=== PATIENT | female | born 1965 | race Caucasian/White ===

== ENCOUNTER 2016-10-29 13:12 | Emergency (ER) | payer BC ==
--- NOTE | 2016-10-29 13:25 | EDPHY ---
H & P Time Seen by Provider: 10/29/16 13:24 HPI/ROS: Chief complaint. Fall HPI. The patient is a 51-year-old female presents emergency department with laceration to face in injury to both knees after missing the last step all descending some stairs just prior to arrival. She fell forward. Hurt glasses cut her right eyebrow. She has an abrasion to her cheek. She is not sure whether she lost consciousness or not briefly. She has some right-sided neck pain but otherwise no back pain. Denies chest pain or abdominal pain. Abrasion to the dorsum of her right ankle and both knees. She has been ambulatory. No vision change. Slight headache ROS Constitutional. no fever/chills, no weakness Eyes. no problems with vision ENT. no sore throat, no nasal drainage Cardiovascular. no chest pain Respiratory. no shortness of breath, no cough Abdominal. no abdominal pain, no nausea/vomiting, no diarrhea . no problems urinating MS. right-sided neck pain Skin. Laceration right eyebrow. Abrasions to both knees and right ankle Lymph. no swollen glands Neuro. Headache Past Medical/Surgical History: Hep C, asthma, orthopedic surgeries, hysterectomy Social History: , nonsmoker, no alcohol Smoking Status: Never smoked Physical Exam: General Appearance: Alert pleasant well-developed female mild distress vital signs stable Eyes: Pupils equal and round no pallor or injection. No restriction of gaze. ENT, no hemotympanum or Archibald sign. No oral pharyngeal or dental trauma. Slight abrasion and mild swelling to the right cheek. Respiratory: There are no retractions, lungs are clear to auscultation. Cardiovascular: Regular rate and rhythm. Gastrointestinal: Abdomen is soft and nontender, no masses, bowel sounds normal. Neurological: Awake and alert, sensory and motor exams grossly normal. Skin: Laceration right eyebrow measuring 1.5 cm Musculoskeletal: No cervical spine tenderness. Mild tenderness to the muscles of the right-sided neck and trapezius Extremities abrasions both knees and dorsum right ankle Psychiatric: Patient is oriented X 3, there is no agitation. Constitutional: Initial Vital Signs Temperature (C) 36.4 C 10/29/16 13:15 Heart Rate 100 10/29/16 13:15 Respiratory Rate 16 10/29/16 13:15 Blood Pressure 148/95 H 10/29/16 13:15 O2 Sat (%) 95 10/29/16 13:15 O2 Delivery Mode Room Air Allergies/Adverse Reactions: codeine Allergy (Severe, Verified 10/29/16 14:27) Sulfa (Sulfonamide Antibiotics) Allergy (Unknown, Verified 10/29/16 14:26) amoxicillin Allergy (Verified 10/29/16 13:34) azithromycin Allergy (Verified 10/29/16 14:27) iodine [Iodine] Allergy (Verified 10/29/16 13:34) shellfish derived Allergy (Verified 10/29/16 14:27) Home Medications: Medication Instructions Recorded Alegra 09/30/09 Estratest 09/30/09 Hctz 09/30/09 Medical Decision Making Procedures: Tylenol by mouth Procedure: Laceration repair. Verbal consent was obtained from the patient. The 1.5 cm laceration on the right eyebrow was anesthetized in the usual fashion. The wound was irrigated, draped and explored to its base with a gloved finger. There were no deep structures involved. No tendon injury was identified. The wound was repaired with six 6-0 prolene sutures . The wound repair was simple. The procedure was performed by myself. ED Course/Re-evaluation: Abrasions were cleaned and dressed re-evaluation 2:30 p.m. patient is alert, conversational. Neurologically intact. No sign of concussion. Patient and I discussed treatment plan including criteria for return importance of follow-up further evaluation. She expresses understanding and agreement Differential Diagnosis: I considered closed head injury, facial fractures, concussion, fractures to extremities. I think the patient has contusion with laceration to face and abrasions without evidence for concussion or fracture - Data Points Medications Given: Discontinued Medications Acetaminophen (Tylenol) 650 mg PO EDNOW ONE Stop: 10/29/16 13:57 Last Admin: 10/29/16 14:10 Dose: 650 mg Tetracaine/Epinephrine/Lidocaine (Let Gel Topical) 1 ea TP EDNOW ONE Stop: 10/29/16 14:13 Last Admin: 10/29/16 14:20 Dose: 1 ea Departure - Departure Disposition: Home, Routine, Self-Care Clinical Impression: Facial laceration Qualifiers: Encounter type: initial encounter Qualified Code(s): S01.81XA - Laceration without foreign body of other part of head, initial encounter Condition: Good Instructions: Care For Your Stitches (ED) Additional Instructions: Ice to sore areas today. Tylenol for discomfort. You may shower and wash your hair with stitches in. Stitches out 5 days Referrals: Sidra John [Primary Care Provider] - As per Instructions
[2016-10-29] MEDS ORDERED: ACETAMINOPHEN 500 MG TAB PO ONE (13:35)
[2016-10-29] MEDS ORDERED: ACETAMINOPHEN 325 MG TAB PO ONE (13:56)
[2016-10-29] MEDS ORDERED: ACETAMINOPHEN 325 MG TAB ONE (13:58)
[2016-10-29] MEDS ORDERED: LET GEL TOPICAL 1 EA SYR TP ONE ×2 (14:11→14:12)
[2016-10-29 14:17] VITALS: RESP 16; TEMP 97.5; O2SAT 95
[2016-10-29 14:59] VITALS: BP 140/88; PULSE 80
== END 2016-10-29 14:57 | disposition home or self-care (01) ==
LOC: CED 13:12
PROC: 08QNXZZ Repair Right Upper Eyelid, External Approach (ICD-10-PCS; principal; 2016-10-29)
DX: S01.111A Laceration without foreign body of right eyelid and periocular area, initial encounter (principal); J45.909 Unspecified asthma, uncomplicated; W18.09XA Striking against other object with subsequent fall, initial encounter

== ENCOUNTER 2018-04-13 11:56 | Emergency (ER) | payer BC ==
--- NOTE | 2018-04-13 12:50 | EDPHY ---
H & P Stated Complaint: Pt. states hematuria this am intermittently x1 week, rt flank pain Time Seen by Provider: 04/13/18 12:05 HPI/ROS: Chief Complaint: Flank pain, hematuria HPI: 52-year-old woman with a history of a bladder sling operation approximately 10 months ago is presenting with hematuria. Patient states she is having bouts of episodes of hematuria since surgery. She has been on multiple courses of antibiotics but urine cultures have come back negative. She has not followed up with the urologist. Her OBGYN is retiring. No fevers or chills. She has not had blood in her urine for quite some time but over the last several days has been having some intermittently. She is also having some pain in her right back. She was seen at urgent care this morning and had a negative urine dip but was sent here for further evaluation. No abdominal pain. No vaginal discharge. She does have a history of a hysterectomy in the past. No nausea or vomiting. No fevers or chills. No urinary urgency or frequency. ROS: 10 systems were reviewed and were negative except those elements noted in the HPI. PMH: Hysterectomy, bladder sling Social History: No smoking, no alcohol, no recreational drug use Family History: non-contributory Physical Exam: Gen: Awake, Alert, No Distress HEENT: Nose: no rhinorrhea Eyes: PERRLA, EOMI Mouth: Moist mucosa Neck: Supple, no JVD Chest: nontender, lungs clear to auscultation Heart: S1, S2 normal, no murmur Abd: Soft, non-tender, no guarding Back: no CVA tenderness, no midline tenderness she does have right paraspinal CVA tenderness reproducing her presenting complaint Ext: no edema, non-tender Skin: no rash Neuro: CN II-XII intact, Sensation grossly intact, Strength 5/5 in bilateral upper and lower extremities - Personal History LMP (Females 10-55): Hysterectomy Tetanus Vaccine Date: 2013 - Medical/Surgical History Hx Asthma: Yes Hx Chronic Respiratory Disease: No Hx Diabetes: No Hx Cardiac Disease: No Hx Renal Disease: No Hx Cirrhosis: No Hx Alcoholism: No Hx HIV/AIDS: No Hx Splenectomy or Spleen Trauma: No Other PMH: Hepatitis c -in remission. asthma. surgeries ortho. Hyster-2003. Tonsillectomy, wound debridement - Social History Smoking Status: Never smoked Constitutional: Initial Vital Signs Temperature (C) 36.7 C 04/13/18 12:09 Heart Rate 87 04/13/18 12:09 Respiratory Rate 16 04/13/18 12:09 Blood Pressure 141/101 H 04/13/18 12:09 O2 Sat (%) 96 04/13/18 12:09 O2 Delivery Mode Room Air Allergies/Adverse Reactions: codeine Allergy (Severe, Verified 04/13/18 12:06) Sulfa (Sulfonamide Antibiotics) Allergy (Unknown, Verified 04/13/18 12:06) amoxicillin Allergy (Verified 04/13/18 12:06) azithromycin Allergy (Verified 04/13/18 12:06) iodine [Iodine] Allergy (Verified 04/13/18 12:06) shellfish derived Allergy (Verified 04/13/18 12:06) Home Medications: Medication Instructions Recorded Hctz 09/30/09 Rosemarie Allergy 04/13/18 Premarin 04/13/18 Medical Decision Making - Diagnostics Imaging Results: Imaging Impressions Abdomen/Pelvis Ultrasound 04/13/18 12:33 Impression: 1. No acute findings. 2. Prominent extrarenal pelves without hydronephrosis. Findings discussed with Rah Campbell MD 04/13/2018 at 13:43. ED Course/Re-evaluation: 52-year-old with right flank pain and intermittent hematuria. She has no hematuria here. She is concerned for the possibility of kidney stone or infection. She had a urine dip which was negative this morning at urgent care and I have reviewed a copy of this. Will get ultrasound to evaluate for hydronephrosis or other process. Otherwise if negative she will need to follow up with Urology for further evaluation of her recurrent hematuria. Ultrasound negative. Will discharge follow-up with Urology. No evidence of acute obstruction or infection at this time. Departure - Departure Disposition: Home, Routine, Self-Care Clinical Impression: Hematuria Condition: Good Instructions: Hematuria (ED) Additional Instructions: Follow up with Urology in 4-5 days for further evaluation. Referrals: Daniele Silva MD [Medical Doctor] - As per Instructions Aracely Adams MD [Medical Doctor] - As per Instructions
[2018-04-13 14:12] VITALS: BP 137/95
== END 2018-04-13 14:00 | disposition home or self-care (01) ==
LOC: CED 11:56
DX: R31.9 Hematuria, unspecified (principal); R10.9 Unspecified abdominal pain
CPT/HCPCS: 76770-PO; 99284-ER